=== PATIENT | male | born 1980 | race Caucasian/White ===

== ENCOUNTER 2017-09-06 11:58 | Day surgery (SDC) | payer OTHER ==
[2017-09-06] VITALS (15 sets, daily range): BP systolic 116–138; BP diastolic 71–84; PULSE 80–105; RESP 13–20; Ht 180.3 cm; Wt 78.0 kg
[~2017-09-06] VITALS: Ht 180.3 cm; Wt 78.0 kg
[~2017-09-06 11:58] MED LIST: CEFAZOLIN 1 GM INJ ONE; FENTAnyl 50 MCG/ML VIAL ONE; KETOROLAC 30 MG INJ ONE; METOCLOPRAMIDE 10 MG INJ ONE; MIDAZOLAM 1 MG/ML 2 ML INJ ONE; PROPOFOL 200 MG INJ ONE
[2017-09-06] MEDS ORDERED: FENO145T19 PO (12:33)
[2017-09-06] MEDS ORDERED: ATOR20TA38 PO (12:33)
[2017-09-06] MEDS ORDERED: TRAM-40 PO (12:34)
--- NOTE | 2017-09-06 13:50 | HPN ---
Date/Time of Note Date/Time of Note DATE: 09/06/17 TIME: 13:49 Interval H&P Admission Note Pt. seen H&P reviewed: No system changes SIM OVALLES Sep 06, 2017 13:50
[2017-09-06] MEDS ORDERED: LACTATED RINGER'S 1,000 ML IV* SCH (14:00)
[2017-09-06] MEDS ORDERED: OXYCODONE/ACETAMINOPHEN (5/325) TAB PO PRN ×2 (14:30)
[2017-09-06] MEDS ORDERED: HYDROmorphONE (0.2 MG/ML) 10ML SYG IV PRN ×3 (14:30)
[2017-09-06] MEDS ORDERED: ONDANSETRON 4 MG INJ IV PRN (14:30)
[2017-09-06] MEDS ORDERED: BUPIVACAINE 0.25% (MPF) 30 ML INJ ONE (14:59)
[2017-09-06] MEDS ORDERED: POLYMYXIN/BACITRACIN 1L IRRIG ONE (14:59)
--- NOTE | 2017-09-06 16:21 | OPPN ---
Date/Time of Note Date/Time of Note DATE: 09/06/17 TIME: 16:19 Operative Report Preoperative Diagnosis Right ring finger proximal phalanx fracture, intra-articular at MP joint Postoperative Diagnosis Right ring finger proximal phalanx fracture, intra-articular at MP joint Operation/Procedure Performed Closed reduction percutaneous pinning of Right ring finger proximal phalanx fracture, intra-articular at MP joint Surgeon see signature line dental front office assistant none Anesthesia: general Estimated blood loss: 0 - 10 ml's Transfusion Required none Specimen none Grafts/Implants none Complications none SIM OVALLES Sep 06, 2017 16:21
--- NOTE | 2017-09-06 16:21 | OPPN ---
Date/Time of Note Date/Time of Note DATE: 09/06/17 TIME: 16:19 Operative Report Preoperative Diagnosis Right ring finger proximal phalanx fracture, intra-articular at MP joint Postoperative Diagnosis Right ring finger proximal phalanx fracture, intra-articular at MP joint Operation/Procedure Performed Closed reduction percutaneous pinning of Right ring finger proximal phalanx fracture, intra-articular at MP joint Surgeon see signature line pediatric physical therapy assistant none Anesthesia: general Estimated blood loss: 0 - 10 ml's Transfusion Required none Specimen none Grafts/Implants none Complications none SIM OVALLES Sep 06, 2017 16:21
--- NOTE | 2017-09-06 16:21 | OPPN ---
Date/Time of Note Date/Time of Note DATE: 09/06/17 TIME: 16:19 Operative Report Preoperative Diagnosis Right ring finger proximal phalanx fracture, intra-articular at MP joint Postoperative Diagnosis Right ring finger proximal phalanx fracture, intra-articular at MP joint Operation/Procedure Performed Closed reduction percutaneous pinning of Right ring finger proximal phalanx fracture, intra-articular at MP joint Surgeon see signature line podiatrist assistant none Anesthesia: general Estimated blood loss: 0 - 10 ml's Transfusion Required none Specimen none Grafts/Implants none Complications none SIM OVALLES Sep 06, 2017 16:21
--- NOTE | 2017-09-06 18:04 | OPR ---
DATE OF OPERATION: 09/06/2017 SURGEON: Nura Mcgill MD ANESTHESIA: General. PREOPERATIVE DIAGNOSIS: Right ring finger proximal phalanx fracture. POSTOPERATIVE DIAGNOSIS: Right ring finger proximal phalanx fracture. OPERATION PERFORMED: Closed reduction, percutaneous pinning of right ring finger proximal phalanx fracture, intra-articular at the metacarpophalangeal joint. OPERATIVE FINDINGS AT SURGERY: Intra-articular comminuted right ring finger proximal phalanx base fracture with angulation and displacement. INDICATION FOR PROCEDURE: A 36-year-old male with injury to the right hand. He was seen in clinic and diagnosed with a displaced right ring finger proximal phalanx fracture. Options were discussed and he elected to proceed with surgical intervention understanding the risks, benefits. OPERATIVE PROCEDURE: Patient was seen in the preoperative area and all further questions were answered. Again, he gave informed consent understanding the risks, benefits. He has taken to the operative suite and placed in supine position. He was placed under general anesthesia and tourniquet placed on the right upper extremity. Right upper extremity was prepped with ChloraPrep stick and draped in usual sterile fashion. Two grams of Ancef IV was given. The FluoroScan machine was brought in and x-rays were taken showing a displaced fracture. A closed reduction was performed and the fingers in a more anatomic alignment. Attempt was made at securing the fracture through the collateral recess, but there was comminution on both the radial and ulnar collateral recess not allowing for adequate fixation. Decision was made to pin across the joint through the base of the proximal phalanx into the shaft. The fracture was held reduced and a 0.045 K-wire was driven antegrade across the joint and the fracture site into the right ring finger proximal phalangeal shaft. X-ray imaging showed appropriate hardware placement and acceptable bony alignment. There was significant improvement in bony alignment from pre to post reduction and fixation. The pin was cut short and a pin cap placed. Xeroform placed on the wound followed by sterile gauze, Webril, and a short-arm splint. Patient was awakened from anesthesia and taken to the postoperative suite in stable condition and tolerated the procedure well with no complications. SPECIMENS: None. ESTIMATED BLOOD LOSS: 5 mL. COUNTS: Sponge, instrument, needle counts correct. TOURNIQUET TIME: Not applicable. FLUOROSCOPIC IMAGES: 7. CONDITION ON DISCHARGE: Stable. Dictated By: Nura Mcgill MD /[email or web address]/alec /Document#: [id number] MTDD
--- NOTE | 2017-09-06 23:26 | RADRPT ---
PROCEDURE: Intraoperative imaging of the right hand with fluoroscopy. CLINICAL INDICATION: Right hand pain. Intraoperative. TECHNIQUE: 20 images of the right hand were obtained in the operating room with an image intensifi er. No radiologist was in attendance. Fluoroscopy time is 00:36. COMPARISON: No prior study is available for comparison. FINDINGS: Images demonstrate open reduction and internal fixation of the comminuted fracture of the base of th e fourth proximal phalanx. IMPRESSION: 1. Intraoperative imaging of the right hand. RPTAT: QQ .Robe Mccloud MD, MD Date Time Electronically viewed and signed by .Robe Mccloud MD, on 09/06/2017 23:26 .R/
[2017-09-07] MEDS ORDERED: INFLUENZA VIRUS VACCINE 0.5 ML SYG IM* ONE (14:00)
== END 2017-09-06 18:00 | disposition home or self-care (01) ==
LOC: SDS 11:58
PROVIDERS: ATTEND Orthopaedic Surgery Hand Surgery
DX: S62.614A Displaced fracture of proximal phalanx of right ring finger, initial encounter for closed fracture (principal); E78.5 Hyperlipidemia, unspecified; X58.XXXA Exposure to other specified factors, initial encounter; Y93.89 Activity, other specified; Y92.89 Other specified places as the place of occurrence of the external cause
CPT/HCPCS: 26727; 73130; J0690; J1170; J1885; J2250; J2405; J2765; J3010; Z7512; Z7610